=== PATIENT | female | born 1945 | race Two or more races ===

== ENCOUNTER 2024-11-30 15:31 | Emergency (ER) | payer OTHER ==
[~2024-11-30] VITALS: Ht 167.6 cm; Wt 74.8 kg
[2024-11-30] MEDS ORDERED: LASIX20 MG PO (15:52)
[2024-11-30] MEDS ORDERED: ROSUVASTATIN CA20 MG PO (15:52)
[2024-11-30] MEDS ORDERED: TOPROL XL100 M1 PO (15:52)
[2024-11-30] MEDS ORDERED: 0.9 % SODIUM CHLORIDE 500 ML IV ONE (16:15)
[2024-11-30 16:57] LABS: BASO % 0.2 % (0.1-1.2); EOS # 0.00 (0.04-0.54); EOS % 0.0 % (0.7-7.0); LYMPH # 0.54 (1.18-3.74); LYMPH % 8.4 % (19.3-53.1); MEAN PLATELET VOLUME 10.00 fl (9.4-12.4); MONO # 0.59 (0.24-0.82); MONO % 9.2 % (4.7-12.5); NEUT # 5.29 (1.56-6.13); NEUT % 82.0 % (34.0-71.1); RED CELL DISTRIBUTION WIDTH 13.7 % (11.6-14.4)
[2024-11-30 17:23] LABS: ALT/SGPT 30.0 U/L (12-78); AST/SGOT 28.0 U/L (15-37); BILIRUBIN TOTAL 0.84 mg/dL (0.3-1.2); BUN CREA RATIO 13.0 (7.0-25.0); CREATININE SERUM 1.02 mg/dL (0.55-1.02); GFR 52.01; GLOBULINA 3.8 G/DL (2.4-3.5); GLUCOSE FASTING 111.0 mg/dL (65-100); OSMOLALITY SERUM 275.0 MOSM/KG (275-295)
[2024-11-30 20:23] LABS: URINE APPEARANCE Clear; URINE BILIRRUBIN Negative (NEGATIVE); URINE BLOOD Negative; URINE COLOR Yellow; URINE GLUCOSE Negative (NEGATIVE); URINE KETONE Negative (NEGATIVE); URINE LEUKOCYTE Negative; URINE NITRATE Negative; URINE PROTEIN Trace (NEGATIVE); URINE UROBILINOGEN 0.2 E.U./dl
[2024-11-30 20:24] LABS: URINE BACTERIA 46.7 uL (0.0-1933); URINE EPITHELIAL CELLS 6.3 uL (0.0-38.8); URINE RBC 6.1 uL (0.0-20.8); URINE WBC 2.0 uL (0.0-23.2)
[2024-11-30 21:12] LABS: COVID-19 AG POSITIVE (NEGATIVE)
[2024-11-30 21:13] LABS: URINE CAST 0.43 uL (0.0-1.40)
[2024-11-30] MEDS ORDERED: PAXLOVID 300-11 EAC1 PO (22:33)
[2024-11-30] MEDS ORDERED: GILTUSS COUGH-118 M1 PO (22:33)
[2024-11-30] MEDS ORDERED: ACETAMINOPHEN500 M1 PO (22:33)
== END 2024-11-30 22:40 | disposition home or self-care (01) ==
LOC: ER 15:32
PROVIDERS: Preventive Medicine Public Health & General Preventive Medicine
DX: U07.1 COVID-19 (principal)
CPT/HCPCS: 36415; 70450; 96365; 96366; 99284; J7042